=== PATIENT | male | born 1965 | race Caucasian/White ===

== ENCOUNTER 2017-06-29 01:24 | Emergency (ER) | payer MEDICAID ==
[2017-06-29 01:33] VITALS: RESP 16; TEMP 98.4
[2017-06-29] MEDS ORDERED: IBUPROFEN 600 MG TAB PO ONE (02:00)
--- NOTE | 2017-06-29 02:29 | EDPHY ---
H & P Stated Complaint: pt c/o L knee pain x 3 days, unk cause Time Seen by Provider: 06/29/17 02:07 HPI/ROS: Chief Complaint: Knee pain HPI: 52-year-old male with no significant medical history he has been having left knee pain for the last 3 days. He is not recall precipitating event but did state that he stepped into a hole without leg 3 days ago. Has had worsening pain over the last 2 nights. Some relief with Advil. No numbness or weakness. Has had increasing pain with weight-bearing. No redness, no warmth, no fevers or chills, no prior injuries. ROS: 10 point Review of Systems is negative except as noted in the HPI. PMH: Denies Social History: [No] smoking, occasional alcohol, [ no recreational drug use] Family History: [non-contributory] Physical Exam: General: Awake, alert, no acute distress Left leg: He has no edema, no erythema, not warm to touch. He has got patellar tenderness on palpation. He is unable to flex his knee. He has no medial or lateral collateral ligament tenderness. No tibial plateau tenderness. No fibular head tenderness. No femur tenderness. He has 2+ DP and PT pulses. Capillary refills less than 2 seconds. Skin: No rash - Medical/Surgical History Hx Asthma: No Hx Chronic Respiratory Disease: No Hx Diabetes: No Hx Cardiac Disease: No Hx Renal Disease: No Hx Cirrhosis: No Hx Alcoholism: No Hx HIV/AIDS: No Hx Splenectomy or Spleen Trauma: No Other PMH: orif L ankle - Social History Smoking Status: Never smoked Constitutional: Initial Vital Signs Temperature (C) 36.9 C 06/29/17 01:30 Heart Rate 78 06/29/17 01:30 Respiratory Rate 16 06/29/17 01:30 Blood Pressure 148/115 H 06/29/17 01:30 O2 Sat (%) 98 06/29/17 01:30 O2 Delivery Mode Room Air Allergies/Adverse Reactions: No Known Allergies Allergy (Verified 06/29/17 01:33) Home Medications: Medication Instructions Recorded Hydrocodone/Acetaminophen 1 - 2 each PO Q4-6PRN PRN #10 06/29/17 [Hydrocodon-Acetaminophen 5-325] tablet IBUPROFEN 06/29/17 Medical Decision Making - Diagnostics Imaging Results: No acute bony abnormality on x-ray. Imaging: I viewed and interpreted images myself ED Course/Re-evaluation: X-rays negative. Patient has been placed in a knee immobilizer and crutches. There are no findings suggestive of acute infectious process. Patient will be discharged with follow up with Orthopedics. - Data Points Medications Given: Discontinued Medications Ibuprofen (Motrin) 600 mg PO EDNOW ONE Stop: 06/29/17 02:01 Last Admin: 06/29/17 02:04 Dose: 600 mg Departure - Departure Disposition: Home, Routine, Self-Care Clinical Impression: Knee pain Condition: Good Instructions: Knee Pain (ED), Crutch Instructions (ED), Knee Immobilizer (ED), Hydrocodone/Acetaminophen (By mouth) Additional Instructions: Follow up with orthopedist in 2-3 days for re-evaluation. Return emergency depart for increasing swelling, redness, uncontrolled pain, fevers, chills, or any other concerns. Referrals: [facility] [Other] - As per Instructions Vahe Arias MD [Medical Doctor] - As per Instructions Prescriptions: Hydrocodone/Acetaminophen [Hydrocodon-Acetaminophen 5-325] 1 - 2 each PO Q4- 6PRN PRN #10 tablet PRN Reason: Pain, Severe
[2017-06-29] MEDS ORDERED: HYDROCOD/APAP 5/325 PREPACK#6 BTL TAKEHOME ONE (02:56)
[2017-06-29 03:06] VITALS: BP 128/77; PULSE 82; O2SAT 96
== END 2017-06-29 03:05 | disposition home or self-care (01) ==
DX: M25.562 Pain in left knee (principal)
CPT/HCPCS: L1830